=== PATIENT | female | born 1945 ===

== ENCOUNTER → 2016-07-31 | Outpatient (CLI) | payer MEDICARE, BC ==
[~2016-07-31] MED LIST: COLACE100 MG PO; LIPITOR80 MG PO; MULTIVITAMINS1 EAC1 PO; PLAVIX75 MG PO; PRAVASTATIN SOD40 MG PO; TYLENOL325 MG PO
== END | disposition disaster alternative care site (69) ==
LOC: GRAD 12:43
DX: C20 Malignant neoplasm of rectum (principal); E78.5 Hyperlipidemia, unspecified; Z98.890 Other specified postprocedural states
CPT/HCPCS: Q9967

== ENCOUNTER → 2016-08-11 | Outpatient (CLI) | payer MEDICARE, BC | END | disposition disaster alternative care site (69) | LOC: GBCOE 08:39 | DX: Z12.31 Encounter for screening mammogram for malignant neoplasm of breast (principal) | CPT/HCPCS: G0202 ==

== ENCOUNTER → 2016-08-12 | Outpatient (CLI) | payer MEDICARE, BC | END | disposition disaster alternative care site (69) | LOC: GRAD 12:45 | DX: N63 Unspecified lump in breast (principal) ==

== ENCOUNTER → 2016-09-16 | Outpatient (CLI) | payer MEDICARE, BC | END | disposition disaster alternative care site (69) | LOC: LKCL 11:11 | DX: Z01.419 Encounter for gynecological examination (general) (routine) without abnormal findings (principal) | CPT/HCPCS: G0145 ==